=== PATIENT | male | born 1950 | race Two or more races ===

== ENCOUNTER 2018-12-27 14:40 | Emergency (ER) | payer MEDICARE ==
[2018-12-27] MEDS ORDERED: NITROGLYCERIN OINT 2% 1 INCH PACKET TP STA (15:07)
[2018-12-27] MEDS ORDERED: NITROGLYCERIN OINT 2% 1 INCH PACKET TP ONE (15:12)
--- NOTE | 2018-12-27 17:16 | ED Physician Chart ---
ED Chief Complaint/HPI - Patient Information Date Seen:: 12/27/18 Time Seen:: 15:00 Chief Complaint:: High Blood Pressure History of Present Illness:: pt presents with elevated BP after bieing out of his BP Medication (Lisinopril 10mg po qd) x 2 days; pt denies any s/s; pt denies trauma, LOC, ALOC, AMS, H/As , visual or gait changes, H/As, neck pain, weakness, dizziness, paresthesias, vertigo, C/P, SOB, Abd. Pain, A/N/V/D/C, fever, chills, or urinary s/s; pt's last tetanus shot: < 5 years; UTD Allergies:: Allergies Allergy/AdvReac Type Severity Reaction Status Date / Time No Known Allergies Allergy Verified 12/27/18 15:07 Vitals:: Vital Signs - 8 hr 12/27/18 12/27/18 12/27/18 15:01 15:12 15:13 Temp 98.5 F HR 98 84 84 RR 16 BP 188/115 184/106 O2 Sat % 100 12/27/18 12/27/18 15:56 16:26 Temp HR 71 62 RR 16 BP 185/98 O2 Sat % 98 Historian:: Patient Review:: Nurse's Note Reviewed, Old Chart Reviewed ED Review of Systems - Review of Systems General/Constitutional: No fever, No chills, No weight loss, No weakness, No diaphoresis, No edema, No loss of appetite Skin: No skin lesions, No rash, No bruising Head: No headache, No light-headedness Eyes: No loss of vision, No pain, No diplopia ENT: No earache, No nasal drainage, No sore throat, No tinnitus Neck: No neck pain, No swelling, No thyromegaly, No stiffness, No mass noted Cardio Vascular: No chest pain, No palpitations, No PND, No orthopnea, No edema Pulmonary: No SOB, No cough, No sputum, No wheezing GI: No nausea, No vomiting, No diarrhea, No pain, No melena, No hematochezia, No constipation, No hematemesis G/U: No dysuria, No frequency, No hematuria, No nacturia Musculoskeletal: No bone or joint pain, No back pain, No muscle pain Endocrine: No polyuria, No polydipsia Psychiatric: No prior psych history, No depression, No anxiety, No suicidal ideation, No homicidal ideation, No auditory hallucination, No visual hallucination Hematopoietic: No bruising, No lymphadenopathy Allergic/Immuno: No urticaria, No angioedema Neurological: No syncope, No focal symptoms, No weakness, No paresthesia, No headache, No seizure, No dizziness, No confusion, No vertigo ED Past Medical History - Past Medical History Obtainable: Yes Past Medical History: HTN Family History: HTN Social History: Non Smoker, No Alcohol, No Drug Use, Single Surgical History: None Psychiatricy History: None Medication: Reviewed Family Medical History - Family Member Mother History Unknown: Yes ED Physical Exam - Physical Examination General/Constitutional: Awake, Well-developed, well-nourished, Alert, No distress, GCS 15, Non-toxic appearing, Ambulatory Head: Atraumatic Eyes: Lids, conjuctiva normal, PERRL, EOMI Skin: Nl inspection, No rash, No skin lesions, No ecchymosis, Well hydrated, No lymphadenopathy ENMT: External ears, nose nl, TM canals nl, Nasal exam nl, Lips, teeth, gums nl , Oropharynx nl, Tonsils nl Neck: Nontender, Full ROM w/o pain, No JVD, No nuchal rigidity, No bruit, No mass, No stridor Other Neck comments:: supple; no meningeal signs; no cervical tenderness; no bruits Respiratory: Nl effort/Exclusion, Clear to Auscultation, No Wheeze/Rhonchi/Rales Cardio Vascular: RRR, No murmur, gallop, rubs, NL S1 S2, Carotid/Femoral/Distal pulses equal bilaterally GI: No tenderness/rebounding/guarding, No organomegaly, No hernia, Normal BS's, Nondistended, No mass/bruits, No McBurney tenderness, Rectum exam nl Other GI comments:: no pulsatile masses : No CVA tenderness Extremities: No tenderness or effusion, Full ROM, normal strength in all extremities, No edema, Normal digits & nails Other Extremities comments:: Left Toe Contusion; good NV functions Neuro/Psych: Alert/oriented, DTR's symmetric, Normal sensory exam, Normal motor strength, Judgement/insight normal, Mood normal, Normal gait, No focal deficits Other Neuro/Psych comments:: no focal signs Misc: Normal back, No paraspinal tenderness ED Labs/Radiology/EKG Results - Lab Results Comments:: deferred by pt - Radiology Results Comments:: X-Rays: deferred by pt - EKG Interpretations Comments:: deferred by pt ED Septic Shock - . Is Septic Shock (SBP<90, OR Lactate>4 mmol\L) present?: No - <6hrs of presentation: Vital Signs: Vital Signs - 8 hr 12/27/18 12/27/18 12/27/18 15:01 15:12 15:13 Temp 98.5 F HR 98 84 84 RR 16 BP 188/115 184/106 O2 Sat % 100 12/27/18 12/27/18 15:56 16:26 Temp HR 71 62 RR 16 BP 185/98 O2 Sat % 98 ED Reassessment (Disposition) - Reassessment Reassessment:: Final BP: 127/77; pt is asymptomatic upon discharge Reassessment Condition:: Improved - Diagnosis Diagnosis:: Hypertension; Left Toe Contusion; Anti- Hypertensive Medication Refill - Aftercare/Follow up Instructions Aftercare/Follow-Up Instructions:: Counseled pt regarding lab results/diagnosis & need follow up, Refer to Discharge Instructions, Counseled pt & family regarding lab results/diagnosis & need follow up Medication Prescribed:: Rx: Lisinopril 10mg po qd (#20); take medications as prescribed; KALANI Diet - Patient Disposition Discharge/Transfer:: Home Condition at Disposition:: Stable, Improved (RTER prn if existing s/s reoccur and/or get worse and/or any other new s/s occur; ACIs given for all above Dx; Refer to [facility]/Orthopedist/Range Operator [facility]; F/U with PMD in one day or prn ; Have Blood Pressure Re-Checked in one day by PMD; RTER prn if concerned)
== END 2018-12-27 17:30 | disposition home or self-care (01) ==
LOC: ER 14:40
DX: S90.122A Contusion of left lesser toe(s) without damage to nail, initial encounter (principal); I10 Essential (primary) hypertension; Z76.0 Encounter for issue of repeat prescription; X58.XXXA Exposure to other specified factors, initial encounter; Y93.89 Activity, other specified; Y92.89 Other specified places as the place of occurrence of the external cause; Y99.8 Other external cause status
CPT/HCPCS: Z7502; Z7610